=== PATIENT | female | born 1995 | race Caucasian/White ===

== ENCOUNTER 2019-01-30 12:58 | Emergency (ER) | payer OTHER ==
[2019-01-30 14:01] LABS: BASOPHILS # (AUTO) 0.1 10^3/uL (0.0-0.1); BASOPHILS % (AUTO) 1.3 %; EOSINOPHILS # (AUTO) 0.1 10^3/uL (0.0-0.7); EOSINOPHILS % (AUTO) 1.1 %; HGB - HEMOGLOBIN 14.5 g/dL (12.0-16.0); LYMPHOCYTES # (AUTO) 2.5 10^3/uL (1.5-3.5); LYMPHOCYTES % (AUTO) 32.7 %; MEAN CORPUSCULAR HGB CONC 34.2 g/dL (32.0-36.0); MEAN CORPUSCULAR VOLUME 87.5 fL (81.0-99.0); MEAN PLATELET VOLUME 8.1 fL (7.9-10.8); MONOCYTES # (AUTO) 0.6 10^3/uL (0.0-1.0); MONOCYTES % (AUTO) 7.2 %; NEUTROPHILS # (AUTO) 4.4 10^3/uL (1.5-6.6); NEUTROPHILS % (AUTO) 57.7 %; PLT - PLATELET COUNT 274 10^3/uL (130-450); RED BLOOD COUNT 4.85 10^6/uL (4.20-5.40); WHITE BLOOD COUNT 7.6 x10^3/uL (4.8-10.8)
--- NOTE | 2019-01-30 14:49 | ED Physician Documentation ---
History of Present Illness - Stated complaint Stated Complaint: BLOOD IN STOOL - Chief complaint Chief Complaint: General - History obtained from History obtained from: Patient - History of Present Illness Timing: Other (For the last several months she has had intermittent painless bright red blood per rectum with bowel movements. She is not constipated. She notes no mucus in the stool, no weight loss, no abdominal pain or night sweats.) Review of Systems Constitutional: denies: Fever, Chills GI: denies: Abdominal Pain, Nausea, Vomiting, Constipation, Diarrhea, Hematemesis : denies: Dysuria, Frequency PD PAST MEDICAL HISTORY - Allergies Allergies/Adverse Reactions: Allergies Allergy/AdvReac Type Severity Reaction Status Date / Time No Known Drug Allergies Allergy Verified 01/30/19 13:12 PD ED PE NORMAL - Vitals Vital signs reviewed: Yes - General General: Alert and oriented X 3, No acute distress - Abdomen Abdomen: Soft, Non tender - Rectal Rectal: Other (with Fanny RN, no ext hemorrhoid or gross blood) - Neuro Neuro: Alert and oriented X 3, Normal speech Results - Vitals Vitals: Vital Signs - 24 hr 01/30/19 13:08 Temperature 36.2 C L Heart Rate 72 Respiratory 16 Rate Blood Pressure 120/91 H O2 Saturation 99 Oxygen O2 Source Room air - Labs Labs: Laboratory Tests 01/30/19 13:43 WBC 7.6 RBC 4.85 Hgb 14.5 Hct 42.4 MCV 87.5 MCH 30.0 MCHC 34.2 RDW 13.0 Plt Count 274 MPV 8.1 Neut # (Auto) 4.4 Lymph # (Auto) 2.5 Mckenzie # (Auto) 0.6 Eos # (Auto) 0.1 Baso # (Auto) 0.1 Absolute Nucleated RBC 0.00 Nucleated RBC % 0.0 PD MEDICAL DECISION MAKING - ED course ED course: This is a young woman with subacute painless bright red blood per rectum, no historical features to suggest inflammatory bowel disease but needs follow-up. H&H is reassuring. Departure - Departure Disposition: 01 Home, Self Care Clinical Impression: Hematochezia Condition: Good Record reviewed to determine appropriate education?: Yes Instructions: ED Hematochezia Stable Follow-Up: Nacho Garcia MD [Provider Admit Priv/Credential] - Comments: Call the surgical office listed on this form to arrange for consultation and potential follow-up for colonoscopy. Return for new or worsening symptoms.
[2019-01-30 14:59] VITALS: BP 126/88
== END 2019-01-30 14:58 | disposition home or self-care (01) ==
LOC: ED 12:58
DX: K92.1 Melena (principal)
CPT/HCPCS: 36415; 85025; 99282; 99283

== ENCOUNTER 2019-05-31 09:45 | Outpatient (CLI) | payer OTHER ==
[2019-05-31 22:03] LABS: TRICHOMONAS VAGINALIS DNA NEGATIVE (NEGATIVE)
== END 2019-05-31 23:59 | disposition home or self-care (01) ==
LOC: LAB.R 09:45
PROVIDERS: ATTEND Obstetrics & Gynecology
DX: N92.6 Irregular menstruation, unspecified (principal)
CPT/HCPCS: 87491; 87591; 87661

== ENCOUNTER 2019-05-31 10:09 | Outpatient (CLI) | payer OTHER ==
[2019-05-31 11:29] LABS: THYROID STIMULATING HORMONE 1.81 uIU/mL (0.34-5.60)
[2019-05-31 11:57] LABS: FOLLICLE STIMULATING HORMONE 7.26 mIU/mL
[2019-05-31 11:58] LABS: LUTEINIZING HORMONE 11.51 mIU/mL
[2019-06-01 07:13] LABS: PROGESTERONE <0.5 ng/mL
[2019-06-02 22:26] LABS: DHEA SULFATE 214 mcg/dL (18-391)
== END 2019-05-31 10:10 | disposition home or self-care (01) ==
LOC: LAB 10:09
PROVIDERS: ATTEND Obstetrics & Gynecology
DX: N92.6 Irregular menstruation, unspecified (principal)
CPT/HCPCS: 36415; 81599; 82627; 83001; 83002; 84144; 84270; 84402; 84403; 84443; 87491; 87591; 87661

== ENCOUNTER 2019-06-06 16:55 | Outpatient (CLI) | payer OTHER ==
--- NOTE | 2019-06-07 10:10 | Ultrasound Report ---
Reason: IRREGULAR PERIODS Procedure Date: 06/06/2019 Accession Number: [id number] / [id number] Procedure: US - Pelvic w/Transvaginal CPT Code: FULL RESULT: EXAM: PELVIC ULTRASOUND EXAM DATE: 06/06/2019 06:17 PM. CLINICAL HISTORY: Irregular periods. COMPARISON: None. TECHNIQUE: Realtime transabdominal pelvic scan performed to identify the uterus and adnexa and as an overview of other pelvic structures, followed by transvaginal scan to provide greater detail of the uterus and adnexa, with static image documentation. FINDINGS: Uterus: 7.6 x 2.9 x 4.5 cm, volume 53 cc. Anteverted position. Normal overall size and echotexture. Masses: Anterior intramural 0.8 x 0.8 x 0.8 cm mass with clearly visualized submucosal component indenting the endometrium. Endometrium: 5 mm. See above. Cervix: Unremarkable. Right Ovary: 2.7 x 2.1 x 2.6 cm, volume 8 cc. Normal echotexture and blood flow. Left Ovary: 2.5 x 2.0 x 2.6 cm, volume 7.4 cc. Normal echotexture and blood flow. Free Fluid: None. Other: None. IMPRESSION: Fibroid with submucosal component intimately associated with the endometrium as described. RADIA
== END 2019-06-06 16:56 | disposition home or self-care (01) ==
LOC: DI 16:55
PROVIDERS: ATTEND Obstetrics & Gynecology
DX: N92.6 Irregular menstruation, unspecified (principal); D25.1 Intramural leiomyoma of uterus
CPT/HCPCS: 76830; 76856

== ENCOUNTER 2019-07-11 15:02 | Outpatient (CLI) | payer OTHER ==
[2019-07-11 15:13] LABS: BASOPHILS # (AUTO) 0.1 10^3/uL (0.0-0.1); BASOPHILS % (AUTO) 0.5 %; EOSINOPHILS # (AUTO) 0.1 10^3/uL (0.0-0.7); EOSINOPHILS % (AUTO) 1.3 %; HGB - HEMOGLOBIN 14.3 g/dL (12.0-16.0); LYMPHOCYTES # (AUTO) 3.3 10^3/uL (1.5-3.5); LYMPHOCYTES % (AUTO) 31.6 %; MEAN CORPUSCULAR HEMOGLOBIN 29.7 pg (27.0-31.0); MEAN CORPUSCULAR VOLUME 87.3 fL (81.0-99.0); MEAN PLATELET VOLUME 9.9 fL (7.9-10.8); MONOCYTES # (AUTO) 0.8 10^3/uL (0.0-1.0); MONOCYTES % (AUTO) 7.1 %; NEUTROPHILS # (AUTO) 6.2 10^3/uL (1.5-6.6); PLT - PLATELET COUNT 272 10^3/uL (130-450); RED BLOOD COUNT 4.82 10^6/uL (4.20-5.40); RED CELL DISTRIBUTION WIDTH 13.1 % (12.0-15.0); WHITE BLOOD COUNT 10.5 x10^3/uL (4.8-10.8)
[2019-07-11 15:38] LABS: CALCIUM 9.1 mg/dL (8.5-10.3); CREATININE 0.6 mg/dL (0.4-1.0)
[2019-07-11 15:50] LABS: HCG UR QUAL NEGATIVE
== END 2019-07-11 15:03 | disposition home or self-care (01) ==
LOC: LAB 15:02
PROVIDERS: ATTEND Obstetrics & Gynecology
DX: Z01.812 Encounter for preprocedural laboratory examination (principal); D25.0 Submucous leiomyoma of uterus
CPT/HCPCS: 36415; 80048; 81025; 85025

== ENCOUNTER 2019-07-12 08:49 | Day surgery (SDC) | payer OTHER ==
[2019-07-12] MEDS ORDERED: LACTATED RINGERS 1,000 ML IV ONE (08:55)
[2019-07-12] MEDS ORDERED: CEFAZOLIN SODIUM IN 0.9 % NACL 2 GM/100 ML BAG IV ONE (09:03)
--- NOTE | 2019-07-12 09:40 | ANESTHESIA ---
Pre-Anesthesia VS, & Labs - Diagnosis submucosal uterine fibroid - Procedure hysterscopy with resection of submucosal fibroid Vital Signs: Temp Pulse Resp BP Pulse Ox 36.2 C L 80 16 122/82 H 100 07/12/19 09:05 07/12/19 09:05 07/12/19 09:05 07/12/19 09:05 07/12/19 09:05 Height 4 ft 11 in Weight (kg) 63 kg Body Mass Index 26.6 - NPO >8 hours - Is Patient ?: No (Negative test on 07/11/19) - Lab Results Lab results reviewed: Yes Home Medications and Allergies Home Medications: Ambulatory Orders No Known Home Medications 07/05/19 No Known Home Medications 07/05/19 Allergies/Adverse Reactions: Allergies Allergy/AdvReac Type Severity Reaction Status Date / Time No Known Drug Allergies Allergy Verified 01/30/19 13:12 Anes History & Medical History - Anesthetic History Family history of Anesthesia Complications: Denies Family history of Malignant Hyperthermia: Denies - Medical History Cardiovascular: reports: None Pulmonary: reports: Pneumonia (History 2 years ago.) Gastrointestinal: reports: None Urinary: reports: None Neuro: reports: None Musculoskeletal: reports: None Endocrine/Autoimmune: reports: None Blood Disorders: reports: None Skin: reports: None Smoking Status: Never smoker Psychosocial: reports: No issues indicated Exam General: Alert, Oriented x3, Cooperative, No acute distress Dental: WNL Mouth Openin Fingerbreadth Neck Mobility: Normal Mallampati classification: II Thyromental Distance: greater than 6 cm Respiratory: Lungs clear, Normal breath sounds, No respiratory distress, No accessory muscle use Cardiovascular: Regular rate, Normal S1, Normal S2, No murmurs Mental/Cognitive Status: Alert/Oriented X3, Normal for patient Plan Anesthesia Type: General Consent for Procedure(s) Verified and Reviewed: Yes Code Status: Attempt Resuscitation ASA classification: 1-Healthy patient Is this case an emergency?: No
[2019-07-12] MEDS ORDERED: SCOPOLAMINE PATCH TOP ONE ×2 (09:56→09:59)
[2019-07-12] MEDS ORDERED: BUPIVACAINE 0.25%-EPI 1:200000 PF 30 ML VIAL ONE (10:12)
[2019-07-12] MEDS ORDERED: BUPIVACAINE 0.25%-EPI 1:200000 PF 30 ML VIAL SUBQ ONE ×2 (10:28)
--- NOTE | 2019-07-12 11:11 | OPERATIVE REPORT ---
Operative Report - General Procedure Date: 07/12/19 Planned Procedure: Hysterscopy with myosure adn resection of submucosal fibroid Pre-Op Diagnosis: Submucosal fibroid Procedure Performed: with resection of endometrial tissue and of possible submucosal fibroid. - Procedure Note Primary Surgeon: Gilbert Allen MD Anesthesia Provider: Kishor Sadler CRNA Anesthesia Technique: General LMA Pathology: endometrial tissue possible submucosal fibroid IV Fluids (mL): 300 Estimated Blood Loss (mL): 25 Urine Output (mL): 100 Indications: 400 ml deficit of LR Complications: [id number]
[2019-07-12] MEDS ORDERED: LORazepam 2 MG/ML VIAL IVP PRN (11:18)
[2019-07-12] MEDS ORDERED: HYDROmorphone 0.5 MG/0.5 ML SYRINGE IVP PRN (11:18)
[2019-07-12] MEDS ORDERED: oxyCODONE 5 MG TABLET PO PRN (11:18)
[2019-07-12] MEDS ORDERED: ONDANSETRON 4 MG/2 ML VIAL IVP PRN (11:18)
[2019-07-12] MEDS ORDERED: oxyCODONE 5 MG TABLET ONE (12:11)
--- NOTE | 2019-07-12 12:16 | OPERATIVE REPORT ---
DATE OF SERVICE: 07/12/2019 Physician: Gilbert Allen MD PREOPERATIVE DIAGNOSIS: Submucosal fibroid. POSTOPERATIVE DIAGNOSIS: Possible submucosal fibroid. PROCEDURE PERFORMED: Hysteroscopy with dilatation and curettage and resection of endometrial polyps, tissues and possible fibroid. SURGEON: Gilbert Allen MD ANESTHESIA: General via LMA with Kishor Sadler CRNA FINDINGS: Uterus sounded to 8 cm. Upon entering the uterine cavity, there was evidence of a lot of fluffy endometrial tissue. This possibly was polyps. Careful inspection of the anterior portion of the uterus did not show any obvious polypoid fibroids. The tubes and orifices appeared to be normal. DESCRIPTION OF PROCEDURE: Following adequate general anesthesia via LMA, patient was placed in the d orsal lithotomy position in Tesfaye stirru. At this point, she was prepped and draped in the usual f ashion. A timeout was performed, following which a speculum was placed in the vagina. The cervix wa s visualized, grasped with a single-tooth tenaculum and then the dilators were inserted, all the way up to 6 mm. Uterus was sounded to 8 cm. At this point, a MyoSure hysteroscope was attempted to be p laced, but this was unsuccessful, so an additional dilator up to 7 mm was utilized and the scope was then placed in the uterus. There is evidence of a large amount of fluffy endometrial tissue. At thi s point, the cornua were visualized bilaterally and appeared to be normal. The MyoSure was then inse rted and the extra endometrial tissue was removed. Care was taken not to be too aggressive to decrea se the risk of damage to the endometrium. Careful inspection of the anterior portion of the uterus d id not show any obvious large polypoid fibroids at this time; however, there was some tissue removed. At this point, the uterus was visualized. There was no evidence of any active bleeding. The hyste roscope was removed. The uterosacral ligaments were both injected with 5 mL of 0.25% Marcaine with e pinephrine. The cervix was released from the single-tooth tenaculum and speculum was removed. Lisa nt tolerated the procedure well and was taken to recovery in stable condition. Sponge and needle cou nts correct. TD: 07/12/2019 11:20
[2019-07-12 12:39] VITALS: BP 124/81
== END 2019-07-12 08:50 | disposition home or self-care (01) ==
LOC: SDS 08:49
PROVIDERS: ATTEND Obstetrics & Gynecology
PROC: 0UDB8ZX Extraction of Endometrium, Via Natural or Artificial Opening Endoscopic, Diagnostic (ICD-10-PCS; principal; 2019-07-12 10:15)
DX: N85.9 Noninflammatory disorder of uterus, unspecified (principal)
CPT/HCPCS: 58558; A9270; J0690; J3490; J7120